=== PATIENT | female | born 1975 | race Caucasian/White ===

== ENCOUNTER 2017-12-27 11:52 | Observation (INO) ==
--- NOTE | 2017-12-27 12:32 | Emergency Department Note ---
Disposition Clinical Impression: Chest pain Qualifiers: Chest pain type: unspecified Qualified Code(s): R07.9 - Chest pain, unspecified Disposition: Admitted As Inpatient Condition: Fair Referrals: Aidan Bhat MD [Primary Care Provider] - Forms: ED Satisfaction Letter Time of Disposition: 14:15 Chest Pain HPI - General Chief Complaint: ED Chest Pain Stated Complaint: CP Time Seen by Provider: 12/27/17 12:05 Source: patient Mode of arrival: ambulatory Limitations: no limitations Vital Signs Reviewed: Yes Nursing Notes Reviewed: Yes - History of Present Illness HPI Narrative: 42-year-old female who comes in complaining of chest pain. Patient had chest pain off and on for the last month and a half actually had a stress test that apparently showed abnormality and saw cardiology today who sent her in to be admitted for cardiac catheter. Nuclear stress test shows a moderately large anterior anterior lateral mostly reversible defect consistent with ischemic heart disease. Pt complaint: chest pain Onset (ago): month(s) (1-08/30) Duration: intermittent Onset: during rest Pain Location: substernal, left chest Severity scale (1-10): 0 Quality: tightness, aching, heaviness Pain Radiation: none - Related Data Home Medications Medication Instructions Recorded Confirmed Albuterol Sulfate [Albuterol 2 puff IH Q4HR PRN 07/29/17 08/03/17 Inhaler] Citalopram Hydrobromide [Celexa] 40 mg PO DAILY 07/29/17 08/03/17 Esomeprazole Magnesium [Nexium] 40 mg PO DAILY 07/29/17 08/03/17 Fluticasone Propionate Nasal 2 spr NS DAILY PRN 07/29/17 08/03/17 [Flonase] Glimepiride [Amaryl] 2 mg PO 0800 07/29/17 08/03/17 Levothyroxine [Synthroid] 175 mcg PO 0630 07/29/17 08/03/17 Lisinopril [Zestril] 5 mg PO DAILY 07/29/17 08/03/17 [place] Carbonate 300 mg PO QAM 07/29/17 08/03/17 [place] Carbonate 600 mg PO HS 07/29/17 08/03/17 Metformin HCl [Glucophage] 1,000 mg PO BID 07/29/17 08/03/17 Ranitidine HCl [Zantac] 150 mg PO BID 07/29/17 08/03/17 Sucralfate [Carafate] 1 gm PO BID 07/29/17 08/03/17 Tolterodine LA (24 HR) [Detrol LA] 4 mg PO DAILY 07/29/17 08/03/17 Ziprasidone HCl [Geodon] 60 mg PO HS 07/29/17 08/03/17 clonazePAM [Klonopin] 1 mg PO TID 07/29/17 08/03/17 Previous Rx's Medication Instructions Recorded OxyCODONE/APAP 5/325 [Percocet 1 each PO Q6HR PRN #14 tablet 08/03/17 5/325 MG] Allergies Allergy/AdvReac Type Severity Reaction Status Date / Time bupropion [From Wellbutrin] AdvReac Shakiness Verified 12/27/17 11:55 All systems ED: reviewed and negative except as stated. Constitutional: Denies: fever, chills, weakness, weight change Eyes: Denies: eye pain, eye discharge, vision change ENT ED: Denies: ear pain, throat pain, dental pain, hearing loss, epistaxis, congestion, dysphagia Cardiovascular: Reports: chest pain. Denies: palpitations, dyspnea on exertion , edema, syncope Respiratory: Denies: cough, dyspnea, wheezes, hemoptysis, stridor Gastrointestinal: Denies: abdominal pain, nausea, vomiting, diarrhea, constipation, hematemesis, melena, hematochezia Genitourinary: Denies: dysuria, frequency, hematuria, discharge Musculoskeletal: Denies: back pain, neck pain, arthralgia, myalgia Integumentary: Denies: rash, abrasion, lesions Neurological: Denies: headache, weakness, numbness, paresthesias, confusion, abnormal gait, vertigo Psychiatric: Denies: anxiety, depression, suicidal thoughts, homicidal thoughts , auditory hallucinations, visual hallucinations Endocrine: Denies: fatigue Hematological/Lymphatic: Denies: easy bleeding, easy bruising Allergic/Immunologic: Denies: facial swelling, urticaria Chest Pain PMH - Past Medical History Medical history: Reports: asthma, diabetes, hyperlipidemia, hypertension Surgical history: Reports: no surgical history Psychiatric history: Reports: anxiety, bipolar, depression - Social History Smoking Status: Never smoker Alcohol use: Reports: rarely Drug use: Reports: none Physical Exam - General Limitations: no limitations General appearance: alert - Head Head exam: atraumatic, normocephalic, normal inspection - Eye Eye exam: Present: normal appearance, PERRL, EOMI - ENT ENT exam: normal exam, normal oropharynx, mucous membranes moist - Neck Neck exam: Present: normal inspection, full ROM, trachea midline - Chest Chest inspection: Present: normal inspection, symmetric chest wall rise - Respiratory Respiratory exam: Present: normal lung sounds bilaterally - Cardiovascular Cardiovascular exam: Present: regular rate, normal rhythm, normal heart sounds - Abdominal Exam Abdominal exam: Present: soft, Non-Tender. Absent: tenderness, distention, guarding, rebound, rigidity - Extremities Exam Extremities exam: Present: normal inspection, full ROM. Absent: tenderness, pedal edema - Expanded Lower Extremity Exam Neurovascular/Tendon exam: Absent: motor deficit, sensory deficit, tendon deficit Gait: observed and normal - Back Exam Back exam: Present: normal inspection, full ROM. Absent: tenderness - Neurological Exam Neurological exam: Present: alert, oriented X3 - Psychiatric Psychiatric exam: Present: normal affect, normal mood - Skin Skin exam: Present: warm Course - Reevaluation(s) Reevaluation #1: 42-year-old has abnormal stress test will be admitted for further evaluation. Time: 14:15 - Consultations Consultation #1: Discussed with Dr. Ray Time: 14:15 Vital Signs Temperature 98.7 F 12/27/17 11:55 Pulse Rate 91 12/27/17 11:55 Respiratory Rate 20 12/27/17 11:55 Blood Pressure 117/84 12/27/17 11:55 O2 Sat by Pulse Oximetry 96 12/27/17 11:55 Temperature 98.7 F 12/27/17 11:55 Pulse Rate 80 12/27/17 12:20 Respiratory Rate 16 12/27/17 12:20 Blood Pressure 116/82 12/27/17 12:20 O2 Sat by Pulse Oximetry 95 12/27/17 12:20 Oxygen Delivery Oxygen Delivery Room Air Chest Pain - Lab Data Lab results reviewed: Yes I reviewed the patient's lab results. Result diagrams: 12/27/17 12:42 12/27/17 12:42 Lab Results 12/27/17 12/27/17 12/27/17 Range/Units 12:42 12:42 12:42 WBC 8.1 (4.3-11.1) K/mcL RBC 5.15 H (3.82-4.97) M/mcL Hgb 13.8 (11.5-15.4) g/dL Hct 41.6 (35.3-44.9) % MCV 80.8 L (83.0-100.0) fL MCH 26.8 L (28.0-33.3) pg MCHC 33.2 (31.6-35.5) g/dL RDW 14.5 (11.5-14.5) % Plt Count 317 (140-400) K/mcL MPV 9.7 (9.4-12.4) fL Immature Gran % 0.2 (0-4) % Seg Neutrophils % 62.4 % Lymphocytes % 25.1 % Monocytes % 6.7 % Eosinophils % 4.9 % Basophils % 0.7 % Neutrophils # 5.0 (1.6-8.9) K/mcL Lymphocytes # 2.0 (0.6-4.6) K/mcL Monocytes # 0.5 (0.0-1.3) K/mcL Eosinophils # 0.4 (0.0-0.6) K/mcL Basophils # 0.1 (0.0-0.2) K/mcL PT 11.2 (9.4-12.1) Seconds INR 1.0 APTT 36.7 H (26.0-36.0) Seconds Sodium 141 (136-145) mEq/L Potassium 4.2 (3.5-5.1) mEq/L Chloride 110 H (98-107) mEq/L Carbon Dioxide 21 L (23-29) mEq/L BUN 7 (6-20) mg/dL Creatinine 0.73 (0.60-1.20) mg/dL Est GFR ( Amer) > 60 (> 60) Est GFR (Non-Af Amer) > 60 (> 60) BUN/Creatinine Ratio 10 (6-26) Glucose 95 (70-105) mg/dL Calculated Osmolality 290 (280-300) Calcium 9.5 (8.6-10.3) mg/dL Troponin I < 0.03 (< 0.04) ng/mL - Radiology Data Radiology results reviewed: Yes I reviewed the patient's radiology results. Chest X-Ray 12/27/17 12:06 IMPRESSION: No acute cardiopulmonary disease. D/ / 12/27/2017 13:22:37 Kemar Montero MD / sahara Interpreting Provider: Kemar Montero MD - EKG Data EKG attestation: Yes I reviewed and interpreted this EKG. EKG shows normal: sinus rhythm Rate: normal Rhythm: NSR [place]/QRS: normal Interpretation: no acute changes Heart Score - Score History: Highly Suspicious EKG: Normal Age: Less than 45 Risk Factors: Equal/Greater than 3 risk factor or history of atherosclerotic disease Troponin: Less than normal limit HEART Score Total: 4
[2017-12-27 12:52] LABS: Basophils # 0.1 K/mcL (0.0-0.2); Basophils % 0.7 %; Eosinophils # 0.4 K/mcL (0.0-0.6); Eosinophils % 4.9 %; Hematocrit 41.6 % (35.3-44.9); Hemoglobin 13.8 g/dL (11.5-15.4); Immature Granulocytes % 0.2 % (0-4); Lymphocytes % 25.1 %; Mean Corpuscular HGB Conc 33.2 g/dL (31.6-35.5); Mean Corpuscular Hemoglobin 26.8 pg (28.0-33.3); Mean Corpuscular Volume 80.8 fL (83.0-100.0); Mean Platelet Volume 9.7 fL (9.4-12.4); Monocytes # 0.5 K/mcL (0.0-1.3); Monocytes % 6.7 %; Platelet Count 317 K/mcL (140-400); Red Blood Count 5.15 M/mcL (3.82-4.97); Red Cell Distribution Width 14.5 % (11.5-14.5); Segmented Neutrophils % 62.4 %
[2017-12-27 12:59] LABS: Prothrombin Time 11.2 Seconds (9.4-12.1)
[2017-12-27 13:02] LABS: Activated Partial Thrombo Time 36.7 Seconds (26.0-36.0)
[2017-12-27 13:13] LABS: Troponin I < 0.03 ng/mL (< 0.04)
[2017-12-27 13:37] LABS: BUN/Creatinine Ratio 10 (6-26); Blood Urea Nitrogen 7 mg/dL (6-20); Calcium 9.5 mg/dL (8.6-10.3); Carbon Dioxide 21 mEq/L (23-29); Chloride 110 mEq/L (98-107); Glucose 95 mg/dL (70-105); Osmolality,Calculated 290 (280-300); Potassium 4.2 mEq/L (3.5-5.1); Sodium 141 mEq/L (136-145); eGFR For African Americans > 60 (> 60); eGFR For Non-African Americans > 60 (> 60)
[2017-12-27] MEDS ORDERED: Naloxone 0.4 MG/ML INJ IVP PRN (14:14)
[2017-12-27] MEDS ORDERED: Fluticasone Propionate Nasal 50 MCG/SPRAY BOTTLE NS PRN (14:15)
[2017-12-27] MEDS ORDERED: *HR* Dextrose 50 % in Water (Syg) 50 ML SYRINGE IVP PRN (14:17)
[2017-12-27] MEDS ORDERED: D5% in Water 1,000 ML IVC PRN (14:17)
[2017-12-27] MEDS ORDERED: Dextrose Gel 15 GM/37.5 ML TUBE PO PRN ×2 (14:17)
--- NOTE | 2017-12-27 14:21 | Internal Med History&Physical ---
Date of Encounter: 12/28/17 Time of Encounter: 14:20 Internal Medicine - H&P: HPI Chief complaint: abnormal stress test Admitted From: Emergency Dept Plans for Post Hospital Care: Home History of present illness: PCP: Dr Bhat Brief past medical history: Diabetes, hypertension, dyslipidemia, bronchial asthma, psychiatric disorder, History of present medical illness: Patient was complaining of ongoing chest pain for which she was investigated at length. Noted that patient has a recently stress test was done. Patient's stress test was suggestive of a large reversible defect. Patient today went to tile erector for evaluation and at that time it was noted that patient was complaining of occasional chest pain. Data Collection Specialist evaluated the patient and sent her to emergency room for further management. Patient denies shortness of breath, nausea, vomiting, dizziness and diarrhea. Workup in the emergency room: Patient was evaluated in the emergency room. Baseline labs were drawn. Cardiology recommends admission and cardiac catheterization Reason for admission: Abnormal stress test with intermittent chest pain Past Med Surg Social Fam HX - Past Medical History Medical history: asthma, diabetes, hyperlipidemia, hypertension Psychiatric history: anxiety, bipolar, depression - Past Surgical History Surgical History: no surgical history - Social History Smoking Status: Never smoker Smokeless Tobacco Status: No Alcohol use: rarely Drug use: none Internal Medicine - H&P: Meds Albuterol Sulfate [Albuterol Inhaler] 2 puff IH Q4HR PRN 07/29/17 [History] Citalopram Hydrobromide [Celexa] 40 mg PO DAILY 07/29/17 [History] Esomeprazole Magnesium [Nexium] 40 mg PO DAILY 07/29/17 [History] Fluticasone Propionate Nasal [Flonase] 2 spr NS DAILY PRN 07/29/17 [History] Glimepiride [Amaryl] 2 mg PO 0800 07/29/17 [History] Levothyroxine [Synthroid] 175 mcg PO 0630 07/29/17 [History] Lisinopril [Zestril] 5 mg PO DAILY 07/29/17 [History] [place] Carbonate 300 mg PO QAM 07/29/17 [History] [place] Carbonate 600 mg PO HS 07/29/17 [History] Metformin HCl [Glucophage] 1,000 mg PO BID 07/29/17 [History] Ranitidine HCl [Zantac] 150 mg PO BID 07/29/17 [History] Tolterodine LA (24 HR) [Detrol LA] 4 mg PO DAILY 07/29/17 [History] Ziprasidone HCl [Geodon] 60 mg PO HS 07/29/17 [History] clonazePAM [Klonopin] 1 mg PO TID 07/29/17 [History] OxyCODONE/APAP 5/325 [Percocet 5/325 MG] 1 each PO Q6HR PRN #14 tablet 08/03/17 [Rx] Aspirin [Adult Aspirin Regimen] 81 mg PO DAILY 12/27/17 [History] Atorvastatin Calcium [Lipitor] 20 mg PO HS 12/27/17 [History] Empagliflozin [Jardiance] 25 mg PO DAILY 12/27/17 [History] 3 Allergy/AdvReac Type Severity Reaction Status Date / Time bupropion [From Wellbutrin] AdvReac Shakiness Verified 12/27/17 14:20 All Systems PM: A 10-system review of systems was performed and is negative for pertinent findings except as documented above in the HPI. - Constitutional Constitutional: no chills, no fever(s), no night sweats - EENT Eyes: no change in vision, no discharge, no pain, no photophobia Ears: no ear discharge, no ear pain, no tinnitus Nose, mouth and throat: no dysphagia, no nasal discharge, no neck pain, no sore throat - Cardiovascular Cardiovascular ROS IM: chest pain, palpitations, no diaphoresis, no dyspnea, no lightheadedness, no syncope - Respiratory Respiratory: no cough, no dyspnea, no wheezing, no excessive phlegm production - Gastrointestinal Gastrointestinal: no abdominal pain, no diarrhea, no hematemesis, no hematochezia, no melena, no nausea, no vomiting - Genitourinary Genitourinary: no change in urinary stream, no dysuria, no flank pain, no hematuria - Musculoskeletal Musculoskeletal ROS IM: no numbness, no tingling - Integumentary Integumentary IM: no rash, no unusual bruising - Neurological Neurological ROS: no confusion, no convulsions, no focal weakness, no numbness, no tingling, no tremor(s) - Hematologic/Lymphatic Hematologic/Lymphatic: no easy bruising - Constitutional Vitals: Temp Pulse Resp BP Pulse Ox 98.7 F 80 16 116/82 95 12/27/17 11:55 12/27/17 12:20 12/27/17 12:20 12/27/17 12:20 12/27/17 12:20 General appearance: Present: A&O X 3, pleasant, no acute distress, answers questions appropriately - Head Head exam: Present: atraumatic, normocephalic - Eye Eye exam: Present: PERRL, conjuntiva pink, sclera anicteric Pupils: Present: PERRL - Neck Neck exam general surgery: Present: supple, trachea midline. Absent: lymphadenopathy - Respiratory Respiratory exam: Present: CTAB. Absent: accessory muscle use, rales, rhonchi, wheezes - Cardiovascular Cardiovascular exam: Present: RRR, +S1, +S2. Absent: diastolic murmur, gallop, rubs, systolic murmur - GI/Abdominal GI/Abdominal exam: Present: normal bowel sounds, soft, no peritoneal signs. Absent: distended, tenderness - Extremities Exam Extremities exam: Present: warm, radial pulses palpable and symmetrical. Absent : calf tenderness, cyanotic, pedal edema - Neurological Exam Neurological exam: Present: CN II-XII intact, oriented X3, no focal deficits. Absent: pronater drift, facial droop, speech deficit - Skin Skin exam: Present: dry, intact Internal Med - H&P Results - Labs CBC & Chem 7: 12/28/17 03:14 12/28/17 03:14 Labs: Short CBC 12/27/17 Range/Units 12:42 WBC 8.1 (4.3-11.1) K/mcL Hgb 13.8 (11.5-15.4) g/dL Hct 41.6 (35.3-44.9) % Plt Count 317 (140-400) K/mcL Neutrophils # 5.0 (1.6-8.9) K/mcL BMP 12/27/17 12:42 Sodium 141 Potassium 4.2 Chloride 110 H Carbon Dioxide 21 L BUN 7 Creatinine 0.73 Glucose 95 Calcium 9.5 Cardiac Enzymes 12/27/17 Range/Units 12:42 Troponin I < 0.03 (< 0.04) ng/mL - Impressions ITS Impressions Chest X-Ray 12/27/17 12:06 IMPRESSION: No acute cardiopulmonary disease. D/ / 12/27/2017 13:22:37 Kemar Montero MD / sahara Interpreting Provider: Kemar Montero MD - Assessment and plan (1) Chest pain Current Visit: Yes Status: Acute Assessment and plan: 42/F Came with abnormal stress test/chest pain At this point: Patient is chest pain-free. Patient is a abnormal stress test. Plan: Admit as observation. Diabetic diet. Cycle troponin. Aspirin/beta millie/ACEI/Lipitor/M.D./sublingual nitroglycerin. Patient is scheduled for cardiac catheterization tomorrow I have personally spoken to cardiology to Dr. Cullen I examined this patient in her room #33 in the emergency department. Plan of care explained to the patient. Patient verbalized understanding. Qualifiers: Chest pain type: precordial pain Qualified Code(s): R07.2 - Precordial pain (2) Diabetes mellitus Current Visit: Yes Status: Acute Assessment and plan: Patient is known to have a diabetes mellitus. We will follow the recommendations from subcutaneous insulin order set. We will keep patient nothing by mouth from midnight. Qualifiers: Diabetes mellitus type: type 2 Diabetes mellitus oysterman insulin use: unspecified oysterman insulin use status Diabetes mellitus complication status : with unspecified complications Qualified Code(s): E11.8 - Type 2 diabetes mellitus with unspecified complications (3) Hypertension Current Visit: Yes Status: Acute Assessment and plan: Patient is known to have a high blood pressure. At this point patient's blood pressure is very well controlled. We will continue the same medications. Qualifiers: Hypertension type: essential hypertension Qualified Code(s): I10 - Essential (primary) hypertension (4) Psychiatric disorder Current Visit: Yes Status: Acute Assessment and plan: Patient is a multiple psychiatric disorder. Patient is on appropriate medication for the same. We will continue/resume the home medication. (5) DVT prophylaxis Current Visit: Yes Status: Acute Assessment and plan: Heparin Medical decision making: This patient has a moderate to severe risk of worsening in spite of being on appropriate medication due to the underlying complex medical condition. - Time Spent With Patient Total time spent is greater than 50% in coordination of care (as documented) at patient's floor/unit and/or counseling patient:
[2017-12-27] MEDS ORDERED: Nitroglycerin 0.4 MG TAB.SUBL SL PRN (14:22)
[2017-12-27] MEDS ORDERED: Acetaminophen 325 MG TABLET PO ONE (15:37)
[2017-12-27] MEDS: Insulin LISPRO 300 UNITS/3 ML VIAL SQ SCH (17:38)
[2017-12-27] MEDS: clonazePAM 1 MG TABLET PO SCH ×2 (17:41→21:39)
[2017-12-27] MEDS: Isosorbide MONOnitrate (24 HR) 30 MG TAB.ER.24H PO SCH (17:41)
[2017-12-27] MEDS: *HR* OxyCODONE/APAP 5/325 TABLET PO PRN (20:12)
[2017-12-27] MEDS ORDERED: Famotidine 20 MG TABLET PO SCH (21:00)
[2017-12-27] MEDS: Lithium Carbonate 300 MG CAPSULE PO SCH (21:38)
[2017-12-27] MEDS: Ziprasidone 20 MG CAPSULE PO SCH (21:39)
[2017-12-27] MEDS: *HR* Heparin 5,000 UNIT/ML VIAL SQ SCH (21:40)
[2017-12-27] MEDS ORDERED: Prochlorperazine 10 MG/2 ML VIAL IVP PRN (22:57)
[2017-12-27] MEDS ORDERED: Ibuprofen 400 MG TABLET PO ONE (23:03)
[2017-12-28 03:41] LABS: Basophils # 0.1 K/mcL (0.0-0.2); Basophils % 0.9 %; Eosinophils # 0.4 K/mcL (0.0-0.6); Eosinophils % 4.7 %; Hematocrit 39.4 % (35.3-44.9); Hemoglobin 12.9 g/dL (11.5-15.4); Immature Granulocytes % 0.3 % (0-4); Lymphocytes # 2.8 K/mcL (0.6-4.6); Lymphocytes % 36.7 %; Mean Corpuscular HGB Conc 32.7 g/dL (31.6-35.5); Mean Corpuscular Hemoglobin 26.5 pg (28.0-33.3); Mean Corpuscular Volume 81.1 fL (83.0-100.0); Mean Platelet Volume 9.8 fL (9.4-12.4); Monocytes # 0.6 K/mcL (0.0-1.3); Monocytes % 7.5 %; Neutrophils # 3.9 K/mcL (1.6-8.9); Platelet Count 301 K/mcL (140-400); Red Blood Count 4.86 M/mcL (3.82-4.97); Red Cell Distribution Width 14.5 % (11.5-14.5); Segmented Neutrophils % 49.9 %
[2017-12-28 03:57] LABS: Alanine Aminotransferase 14 Units/L (7-52); Albumin 3.5 g/dL (3.5-5.7); Albumin/Globulin Ratio 1.5 (1.1-2.2); Alkaline Phosphatase 52 Units/L (34-104); Aspartate Amino Transferase 11 Units/L (13-39); BUN/Creatinine Ratio 11 (6-26); Bilirubin,Total 0.5 mg/dL (0.3-1.0); Blood Urea Nitrogen 8 mg/dL (6-20); Carbon Dioxide 27 mEq/L (23-29); Chloride 110 mEq/L (98-107); Chol/HDL Ratio 3.3 (0-4.9); Cholesterol 116 mg/dL (< 200); Globulin 2.4 g/dL (2.4-3.5); Glucose 87 mg/dL (70-105); HDL Cholesterol 35 mg/dL (40-59); LDL Cholesterol,Calculated 38 mg/dL (0-99); Magnesium 2.1 mg/dL (1.6-2.6); Osmolality,Calculated 290 (280-300); Phosphorous 4.3 mg/dL (2.7-4.5); Potassium 3.8 mEq/L (3.5-5.1); Sodium 141 mEq/L (136-145); Total Protein 5.9 g/dL (6.4-8.9); Triglycerides 215 mg/dL (< 150); eGFR For African Americans > 60 (> 60); eGFR For Non-African Americans > 60 (> 60)
[2017-12-28] MEDS: *HR* Heparin 5,000 UNIT/ML VIAL SQ SCH ×3 (06:31→21:22)
[2017-12-28] MEDS: Insulin LISPRO 300 UNITS/3 ML VIAL SQ SCH ×3 (07:22→17:07)
[2017-12-28] MEDS: *HR* Glimepiride 2 MG TABLET PO SCH (08:00)
[2017-12-28] MEDS: Aspirin Enteric Coated 81 MG Tablet PO SCH (08:01)
[2017-12-28] MEDS: Isosorbide MONOnitrate (24 HR) 30 MG TAB.ER.24H PO SCH (08:03)
[2017-12-28] MEDS: clonazePAM 1 MG TABLET PO SCH ×3 (08:03→21:13)
[2017-12-28] MEDS: Lithium Carbonate 300 MG CAPSULE PO SCH ×2 (08:03→21:13)
[2017-12-28] MEDS: (Empagliflozin [Jardiance] 25 MG) PO SCH (08:04)
[2017-12-28] MEDS: Tolterodine LA (24 HR) 4 MG CAP.ER.24H PO SCH (08:09)
--- NOTE | 2017-12-28 11:11 | Cardiology Consult Note ---
Date of Encounter: 12/28/17 Time of Encounter: 11:09 Assessment and Plan (1) Abnormal stress test Current Visit: Yes Status: Acute Nuclear stress test 12/22/17 that revealed large sized, moderate intensity mostly reversible anterior and anterolateral defect possibly due to ischemia. TTE 12/23 EF preserved, no significant findings. Risk factors for CAD include HTN, HLD, DMII, obesity, family hx. Chest pain as HPI. Recommend [facility] to further evaluate. R/B/A discussed. Pt agrees to proceed. LHC today. (2) Chest pain Current Visit: Yes Status: Acute Chest pain concerning for unstable angina with abnormal stress test as above, multiple risk factors. Troponin negative x 3. LHC today. R/B/A discussed. Qualifiers: Chest pain type: precordial pain Qualified Code(s): R07.2 - Precordial pain Discussion w patient/family: The assessment and plan as outlined above was discussed with the patient and/or family members who expressed understanding and agreement. All questions were answered. Thank you for involving us in the care of your patient. Please call with any questions. I will discuss all the above with Dr. Yu and make changes as necessary. History of Present Illness Consult date: 12/28/17 Requesting physician: Tari Carlson Consult reason: Abnormal stress test, unstable angina Chief complaint: chest pain History of present illness: Ms. 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 Pt reports she started having intermittent chest pain for over the past month. Pain is described as midsternal, achy and pressure that radiated once to her left neck, no exacerbating or alleviating factors, lasts seconds to minutes. Pt saw PCP, stress test ordered and completed 12/22/17 that revealed large sized, moderate intensity mostly reversible anterior and anterolateral defect possibly due to ischemia. TTE 12/23 EF preserved, no significant findings. Troponin negative x 3. Cardiology consulted for further recs. Pt reports having LHC 5 years ago at [facility] without intervention. Past Med Surg Social Fam HX - Past Medical History Medical history: asthma, diabetes, hyperlipidemia, hypertension Psychiatric history: anxiety, bipolar, depression - Past Surgical History Surgical History: no surgical history - Social History Smoking Status: Never smoker Smokeless Tobacco Status: No Alcohol use: rarely Drug use: none - Family History Father Age: 61 Living Status: Still Living Hx Family Cardiac Disorders: Yes (CABG) Hx Family Respiratory Disorders: Yes (COPD) Mother Age: 63 Living Status: Still Living Hx Family Cardiac Disorders: Yes (HTN) Hx Family Respiratory Disorders: Yes (unknown) Hx Family Endocrine Disorder: Yes (DM) Medications and Allergies Albuterol Sulfate [Albuterol Inhaler] 2 puff IH Q4HR PRN 07/29/17 [History] Citalopram Hydrobromide [Celexa] 40 mg PO DAILY 07/29/17 [History] Esomeprazole Magnesium [Nexium] 40 mg PO DAILY 07/29/17 [History] Fluticasone Propionate Nasal [Flonase] 2 spr NS DAILY PRN 07/29/17 [History] Glimepiride [Amaryl] 2 mg PO 0800 07/29/17 [History] Levothyroxine [Synthroid] 175 mcg PO 0630 07/29/17 [History] Lisinopril [Zestril] 5 mg PO DAILY 07/29/17 [History] Dinwiddie Carbonate 300 mg PO QAM 07/29/17 [History] Dinwiddie Carbonate 600 mg PO HS 07/29/17 [History] Metformin HCl [Glucophage] 1,000 mg PO BID 07/29/17 [History] Ranitidine HCl [Zantac] 150 mg PO BID 07/29/17 [History] Tolterodine LA (24 HR) [Detrol LA] 4 mg PO DAILY 07/29/17 [History] Ziprasidone HCl [Geodon] 60 mg PO HS 07/29/17 [History] clonazePAM [Klonopin] 1 mg PO TID 07/29/17 [History] OxyCODONE/APAP 5/325 [Percocet 5/325 MG] 1 each PO Q6HR PRN #14 tablet 08/03/17 [Rx] Aspirin [Adult Aspirin Regimen] 81 mg PO DAILY 12/27/17 [History] Atorvastatin Calcium [Lipitor] 20 mg PO HS 12/27/17 [History] Empagliflozin [Jardiance] 25 mg PO DAILY 12/27/17 [History] 3 Allergy/AdvReac Type Severity Reaction Status Date / Time bupropion [From Wellbutrin] AdvReac Shakiness Verified 12/27/17 14:20 All Systems Review: The remainder of the systems were reviewed and are negative - Cardiovascular Cardiovascular: as per HPI, chest pain at rest, chest pain with exertion, radiating jaw, neck or arm pain Physical Examination Vital Signs Temp Pulse Resp BP Pulse Ox 12/28/17 06:49 99.0 F 82 17 113/79 92 12/28/17 03:44 98.3 F 67 16 105/65 94 12/28/17 00:38 98.5 F 78 16 96/51 94 12/27/17 19:38 98.2 F 80 16 111/77 95 12/27/17 17:19 99.4 F 78 16 127/82 95 12/27/17 16:24 98.2 F 18 118/82 12/27/17 12:20 80 16 116/82 95 12/27/17 11:55 98.7 F 91 20 117/84 96 Intake and Output 12/27/17 12/28/17 12/28/17 23:59 07:59 15:59 Other: # Voids 3 Weight 154.9 kg Blood Glucose* 129 97 Patient Weight 12/28/17 23:59 Weight 154.9 kg General: Conversant, No Apparent Distress HEENT: Atraumatic, Normocephaly, Mucus Membranes Moist Neck: No JVD, Normal carotid pulses Cardiac: Reg Rate and Rhythm, Normal S1 and S2, No Murmur Lungs: Normal Breath Sounds, No Wheeze, Rales, Rhonchi Neuro: Alert and responsive, No focal deficits noted Abdomen: Soft, Non-Tender Skin: No rashes noted on visualized skin Musculoskeletal: No Chest Wall Tenderness Extremities: No Clubbing, No Cyanosis, No Edema, Normal Pulses Results 12/28/17 03:14 12/28/17 03:14 Lab Results 12/27/17 12/28/17 12/28/17 20:10 03:14 03:14 WBC 7.7 Hgb 12.9 Hct 39.4 Plt Count 301 Sodium Potassium Chloride Carbon Dioxide BUN Creatinine Glucose Calcium Magnesium Total Bilirubin AST ALT Alkaline Phosphatase Troponin I < 0.03 < 0.03 B-Natriuretic Peptide 12/28/17 12/28/17 03:14 03:14 WBC Hgb Hct Plt Count Sodium 141 Potassium 3.8 Chloride 110 H Carbon Dioxide 27 BUN 8 Creatinine 0.73 Glucose 87 Calcium 9.0 Magnesium 2.1 Total Bilirubin 0.5 AST 11 L ALT 14 Alkaline Phosphatase 52 Troponin I B-Natriuretic Peptide 11 Short CBC 12/28/17 12/27/17 Range/Units 03:14 12:42 WBC 7.7 8.1 (4.3-11.1) K/mcL Hgb 12.9 13.8 (11.5-15.4) g/dL Hct 39.4 41.6 (35.3-44.9) % Plt Count 301 317 (140-400) K/mcL Neutrophils # 3.9 5.0 (1.6-8.9) K/mcL BMP 12/28/17 12/27/17 Range/Units 03:14 12:42 Sodium 141 141 (136-145) mEq/L Potassium 3.8 4.2 (3.5-5.1) mEq/L Chloride 110 H 110 H (98-107) mEq/L Carbon Dioxide 27 21 L (23-29) mEq/L BUN 8 7 (6-20) mg/dL Creatinine 0.73 0.73 (0.60-1.20) mg/dL Glucose 87 95 (70-105) mg/dL Calcium 9.0 9.5 (8.6-10.3) mg/dL Cardiac Enzymes 12/28/17 12/27/17 12/27/17 Range/Units 03:14 20:10 14:38 Troponin I < 0.03 < 0.03 < 0.03 (< 0.04) ng/mL 12/27/17 Range/Units 12:42 Troponin I < 0.03 (< 0.04) ng/mL Liver Function 12/28/17 Range/Units 03:14 Total Bilirubin 0.5 (0.3-1.0) mg/dL AST 11 L (13-39) Units/L ALT 14 (7-52) Units/L Alkaline Phosphatase 52 (34-104) Units/L Albumin 3.5 (3.5-5.7) g/dL Impressions Chest X-Ray 12/27/17 12:06 IMPRESSION: No acute cardiopulmonary disease. D/ / 12/27/2017 13:22:37 Kemar Montero MD / earnick Interpreting Provider: Kemar Montero MD Active Medications Aspirin (Aspirin Ec) 81 mg PO DAILY [facility]ILDA Stop: 06/29/18 09:01 Last Admin: 12/28/17 08:01 Dose: 81 mg Atorvastatin Calcium (Lipitor) 20 mg PO HS WILDA Stop: 06/28/18 21:01 Last Admin: 12/27/17 21:39 Dose: 20 mg Citalopram Hydrobromide (Celexa) 40 mg PO QPM [facility]ILDA Stop: 06/28/18 20:19 Last Admin: 12/27/17 21:46 Dose: 40 mg Clonazepam (Klonopin) 1 mg PO TID [facility]IL[facility] Stop: 06/28/18 15:01 Last Admin: 12/28/17 08:03 Dose: 1 mg Dextrose/Water (Dextrose 50% (Syg)) 25 ml IVP AD PRN PRN Reason: Hypoglycemia Stop: 06/28/18 14:18 Fluticasone Propionate (Flonase) 100 mcg NS DAILY PRN; Protocol PRN Reason: Allergy Symptoms Stop: 06/28/18 14:16 Glimepiride (Amaryl) 2 mg PO 0800 [facility] Stop: 06/29/18 08:01 Last Admin: 12/28/17 08:00 Dose: Not Given Glucagon (Glucagen) 1 mg IM ONCE PRN PRN Reason: Hypoglycemia Stop: 06/28/18 14:18 Glucose (Gluctose) 15 gm PO ONCE PRN PRN Reason: Hypoglycemia Stop: 06/28/18 14:18 Glucose (Gluctose) 30 gm PO ONCE PRN PRN Reason: Hypoglycemia Stop: 06/28/18 14:18 Heparin Sodium (Porcine) (Heparin) 5,000 unit SQ Q8HCO [facility]ILDA Stop: 06/28/18 22:01 Last Admin: 12/28/17 06:31 Dose: 5,000 unit Dextrose (Dextrose 5%) 1,000 mls @ 100 mls/hr IVC .Q10H PRN PRN Reason: HYPOGLYCEMIA Stop: 06/28/18 14:18 Insulin Human Lispro (Humalog) 0 units SQ TIDAC WILDA PRN Reason: Protocol Stop: 06/28/18 16:31 Last Admin: 12/28/17 07:22 Dose: Not Given Isosorbide Mononitrate (Imdur) 30 mg PO DAILY [facility] Stop: 06/28/18 14:31 Last Admin: 12/28/17 08:03 Dose: 30 mg Levothyroxine Sodium (Synthroid) 175 mcg PO 0630 [facility] Stop: 06/29/18 06:31 Last Admin: 12/28/17 06:31 Dose: 175 mcg Lisinopril (Zestril) 5 mg PO DAILY [facility] PRN Reason: Protocol Stop: 06/29/18 09:01 Last Admin: 12/28/17 08:04 Dose: 5 mg Dinwiddie Carbonate (Dinwiddie Carbonate) 600 mg PO HS [facility] Stop: 06/28/18 21:01 Last Admin: 12/27/17 21:38 Dose: 600 mg Dinwiddie Carbonate (Dinwiddie Carbonate) 300 mg PO QAM [facility] PRN Reason: Protocol Stop: 06/29/18 09:01 Last Admin: 12/28/17 08:03 Dose: 300 mg Naloxone HCl (Narcan) 0.4 mg IVP Q2MIN PRN PRN Reason: SEE COMMENTS Stop: 06/28/18 14:15 Nitroglycerin (Nitroglycerin) 0.4 mg SL Q5MIN PRN PRN Reason: Chest Pain Stop: 06/28/18 14:23 Omeprazole (Prilosec) 40 mg PO DAILY [facility] Stop: 06/29/18 09:01 Last Admin: 12/28/17 08:04 Dose: 40 mg Oxycodone/Acetaminophen (Percocet 5/325) 1 each PO Q6HR PRN PRN Reason: Pain Stop: 06/28/18 14:16 Last Admin: 12/27/17 20:12 Dose: 1 each Pharmacy Profile Note (Patient Taking Own Medication) 0 each PO DAILY [facility] Stop: 06/29/18 09:01 Last Admin: 12/28/17 08:04 Dose: Not Given Prochlorperazine Edisylate (Compazine) 10 mg IVP ONCE PRN PRN Reason: Nausea And Vomiting Stop: 06/28/18 22:58 Last Admin: 12/27/17 23:32 Dose: 10 mg Sucralfate (Carafate) 1 gm PO BID [facility] Stop: 06/28/18 21:01 Last Admin: 12/28/17 08:01 Dose: Not Given Tolterodine Tartrate (Detrol La) 4 mg PO DAILY [facility] Stop: 06/29/18 09:01 Last Admin: 12/28/17 08:09 Dose: 4 mg Ziprasidone (Geodon) 60 mg PO HS [facility] Stop: 06/28/18 21:01 Last Admin: 12/27/17 21:39 Dose: 60 mg - Imaging and Cardiology Echo: report reviewed Cardiac cath: report reviewed - EKG Interpretation EKG results cardiology: personally reviewed Consult Discharge Plan - Plan Referrals: Aidan Bhat MD [Primary Care Provider] -
[2017-12-28] MEDS ORDERED: Ibuprofen 400 MG TABLET PO ONE (11:30)
--- NOTE | 2017-12-28 12:22 | Electrocardiograph Report ---
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
--- NOTE | 2017-12-28 14:32 | Internal Med Progress Note ---
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 Currently chest pain-free. Evaluated by cardiology who is planning LHC. Cont Aspirin, BB, Lipitor. Further recommendations pending left heart catheterization. Qualifiers: Chest pain type: precordial pain Qualified Code(s): R07.2 - Precordial pain (2) Diabetes mellitus Current Visit: Yes Status: Acute Assessment and plan: per hx. Control unknown. Holding home oral hypoglycemics. SSI. Blood sugars controlled. Monitor blood sugars and titrate PRN. 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 BP controlled. Cont home BP medication. Monitor BP and titrate PRN Qualifiers: Hypertension type: essential hypertension Qualified Code(s): I10 - Essential (primary) hypertension (4) Psychiatric disorder Current Visit: Yes Status: Acute Assessment and plan: hx multiple psychiatric disorder. Cont home medication regimen. (5) DVT prophylaxis Current Visit: Yes Status: Acute Assessment and plan: Heparin - Time Spent With Patient Total time spent is greater than 50% in coordination of care (as documented) at patient's floor/unit and/or counseling patient: - Subjective Interval history: Seen and examined at bedside. Patient is new to me, information obtained from chart review and patient report. She is anxious to have left heart catheterization but otherwise feels improved. Says she has intermittent chest pain, none on my exam. No shortness of breath. - Constitutional Vitals: Temp Pulse Resp BP Pulse Ox 98.5 F 75 16 128/72 95 12/28/17 11:41 12/28/17 11:41 12/28/17 11:41 12/28/17 11:41 12/28/17 11:41 General appearance: Present: A&O X 3, morbidly obese, pleasant, no acute distress, answers questions appropriately - Head Head exam: Present: atraumatic, normocephalic - Eye Eye exam: Present: PERRL, conjuntiva pink, sclera anicteric Pupils: Present: PERRL - Neck Neck exam general surgery: Present: supple, trachea midline. Absent: lymphadenopathy - Respiratory Respiratory exam: Present: CTAB. Absent: accessory muscle use, rales, rhonchi, wheezes - Cardiovascular Cardiovascular exam: Present: RRR, +S1, +S2. Absent: diastolic murmur, gallop, rubs, systolic murmur - GI/Abdominal GI/Abdominal exam: Present: normal bowel sounds, soft, no peritoneal signs. Absent: distended, tenderness - Extremities Exam Extremities exam: Present: warm, radial pulses palpable and symmetrical. Absent : calf tenderness, cyanotic, pedal edema - Neurological Exam Neurological exam: Present: CN II-XII intact, oriented X3, no focal deficits. Absent: pronater drift, facial droop, speech deficit - Skin Skin exam: Present: dry, intact Internal Medicine: Result - Labs CBC & Chem 7: 12/28/17 03:14 12/28/17 03:14 Labs: Short CBC 12/28/17 Range/Units 03:14 WBC 7.7 (4.3-11.1) K/mcL Hgb 12.9 (11.5-15.4) g/dL Hct 39.4 (35.3-44.9) % Plt Count 301 (140-400) K/mcL Neutrophils # 3.9 (1.6-8.9) K/mcL BMP 12/28/17 03:14 Sodium 141 Potassium 3.8 Chloride 110 H Carbon Dioxide 27 BUN 8 Creatinine 0.73 Glucose 87 Calcium 9.0 Cardiac Enzymes 12/27/17 12/28/17 Range/Units 20:10 03:14 Troponin I < 0.03 < 0.03 (< 0.04) ng/mL Liver Function 12/28/17 Range/Units 03:14 Total Bilirubin 0.5 (0.3-1.0) mg/dL AST 11 L (13-39) Units/L ALT 14 (7-52) Units/L Alkaline Phosphatase 52 (34-104) Units/L Albumin 3.5 (3.5-5.7) g/dL - ABG Interpretation ABG results: PT/INR, D-dimer PT 11.2 Seconds (9.4-12.1) 12/27/17 12:42 Consult Discharge Plan - Plan Referrals: Aidan Bhat MD [Primary Care Provider] -
[2017-12-28] MEDS: *HR* OxyCODONE/APAP 5/325 TABLET PO PRN ×2 (14:52→21:13)
[2017-12-28] MEDS ORDERED: *HR* FentaNYL (PF) 100 MCG/2 ML VIAL ONE (15:58)
[2017-12-28] MEDS ORDERED: *HR* Midazolam HCl 2 MG/2 ML VIAL ONE ×2 (15:58→16:17)
[2017-12-28] MEDS ORDERED: 0.9 % Sodium Chloride 1,000 ML ONE ×2 (16:00→16:06)
--- NOTE | 2017-12-28 16:03 | Pre-Sedation Evaluation ---
Pre-sedation evaluation - Pre-sedation checklist Date of procedure: 12/28/17 Procedure: left heart cath Recent Vitals: Last Vital Signs Temp 97.9 F 12/28/17 15:02 Pulse 79 12/28/17 15:02 Resp 15 12/28/17 15:02 BP 105/66 12/28/17 15:02 Pulse Ox 95 12/28/17 15:02 H&P (including ROS) documented in medical record: Yes Previous reaction to sedatives/anesthetics: No Dietary Status: NPO after Midnight ASA Classification *see protocol: CLASS II-Mild systemic disease Plan of Care: Pt appropriate candidate for procedure/moderate/conscious sedation , Risks/benefits of procedure/sedation discussed w/ patient/family
[2017-12-28] MEDS ORDERED: Verapamil 5 MG/2 ML VIAL ONE (16:05)
[2017-12-28] MEDS ORDERED: Heparin 1,000 UNITS/500 mL 500 ML ONE (16:06)
[2017-12-28] MEDS ORDERED: ISOVUE-370 200 ML INFUS..BTL IV ONE (16:06)
[2017-12-28] MEDS ORDERED: *HR* Heparin 10,000 UNIT/10 ML VIAL ONE (16:06)
[2017-12-28] MEDS ORDERED: Nitroglycerin 1,000 MCG/10 ML VIAL IV ONE (16:06)
--- NOTE | 2017-12-28 16:56 | Invasive Diagnostic Lab Proc ---
Name: Elvira Thacker Date of Study: 12/28/2017 Date: 1975 Ht: 61.0in Medical Record#: [id number] Age: 42 Wt: 341.72lb Gender: Female BSA: 2.37 Order #: [id number] BMI: 64.52 Physicians Procedure Physician: Patric Whitehead MD, [facility] Referring MD: Referring MD: Staff Name Position Time In Ekaterina Ascencio RT (R) Scrub 03:43 PM Donato Talon RT (R) Monitor 03:43 PM Dot Bauer RN Electroformer 03:43 PM Indications Indication Abnormal Test - Stress Procedures Performed Procedure L HRT ARTERY/VENTRICLE ANGIO Pre-Procedure Checklist Informed consent is complete signed and on chart. H&P is on chart. ID band is on and ID verified with patient. Patient NPO for procedure The procedure was described for the patient and questions were answered. Blood Pressure: 132/78 ECG is on chart. Rhythm: NSR Plan of Care Patient will tolerate the procedure without complications. Adequate level of comfort will be maintained. Hemodynamics will remain stable Patient will recover from procedure without complications. Respiratory function will be maintained. Cardiac rhythm will remain stable. Patient temperature will be maintained. Patient and/or family have verbalized understanding of the procedure. Patient Education Chief Complaint/Reason for Test: Cardiac Cath Developmental Category: Adult (18-64 years) Developmentally Appropriate for Age: Yes Learning Barriers: None Education Needs: Procedure Education Method: Verbal Information Taught: Cardiac Cath Educational Evaluation: Able to repeat information Intravenous Access Time IV Size Location DC'd Fluid/Drip Rate Units RN 03:51 PM 20g 1 /" Patent On Arrival Lt Arm 0.9NaCl 25 ml/hr Dot Bauer RN Allergies acetaminophen bupropion Vital Signs Time BP (mmHg) HR (bpm) O2 Sat. RR (bpm) LOC 03:56 PM 132 / 78 68 96 % 15 5 = Fully awake and oriented or at pre-proc level 03:52 PM / % 4 = Oriented but drowsy 04:07 PM / % 4 = Oriented but drowsy 04:22 PM / % 5 = Fully awake and oriented or at pre-proc level 03:57 PM 132 / 78 66 97 % 7 04:02 PM 119 / 80 66 97 % 14 04:07 PM 113 / 69 65 99 % 11 04:12 PM 118 / 74 64 94 % 11 04:17 PM 122 / 74 63 97 % 13 04:22 PM 128 / 74 68 96 % 17 04:27 PM 123 / 77 65 95 % 11 04:33 PM 125 / 78 65 99 % 11 04:37 PM 134 / 76 74 97 % 12 04:42 PM 127 / 84 62 98 % 15 Procedural Medications Time Medication Dose Units Method Given By 03:58 PM Oxygen 2 L/min nasal cannula Dot Bauer RN 04:03 PM Versed 2 mg Intravenous Juancarlos, Dot HOLLY 04:03 PM Fentanyl 50 mcg Intravenous [place] j[place] RN 04:17 PM Versed 2 mg Intravenous JuancarlosDot RN 04:17 PM Fentanyl 25 mcg Intravenous Juancarlos, Dot HOLLY 04:17 PM Lidocaine 2% 18 ml Subcutaneous Patric Whitehead MD, [facility] ASA Classification: CLASS III- Severe systemic disease (i.e. prior AMI, diabetes with vascular complications, morbid obesity) Aliya Score Preprocedure Postprocedure Activity 2- Moves 4 extremities sustained head lift Activity 2- Moves 4 extremities sustained head lift Circulation 2- SBP +/= 20 points of pre-anesthetic level Circulation 2- SBP +/= 20 points of pre-anesthetic level Consciousness 2- Awake and alert oriented x 3 Consciousness 2- Awake and alert oriented x 3 O2 Saturation 2- Able to maintain O2 satruation of 92% on room air O2 Saturation 2- Able to maintain O2 satruation of 92% on room air Respiratory 2- Able to deep breathe and cough well Respiratory 2- Able to deep breathe and cough well Total Score 10 Total Score 10 Contrast Agent: Isovue Diagnostic Contrast: 85 ml Total Contrast: 85 ml Fluoro Dose: 494 mGy Procedure Log Time Note Enter By 03:43 PM Ekaterina Ascencio RT (R) Position: Scrub Time in: 15:43 03:43 PM Talon Sewell RT (R) Position: Monitor Time in: 15:43 03:43 PM Dot Bauer RN Position: Electroformer Time in: 15:43 03:43 PM Patient charges- Angio tray pack, Navilyst 3mm J, Pulse Oximetry and ACIST tubing and transducer [email or web address] 03:51 PM 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 03:52 PM CathStat 03:52 PM Procedure start 15:52 bw 03:52 PM ASA Class CLASS III- Severe systemic disease (i.e. prior AMI, diabetes with vascular complications, morbid obesity) bw 03:52 PM Time: 15:52 Patient comfortable and pain free: Yes 03:52 PM Time: 15:52LOC: 5 = Fully awake and oriented or at pre-proc level [email or web address] 03:56 PM Vitals capture started with the following parameters, Patient=Adult, Interval=5 min, Initial Prsfqfav=479 mmHg, Deflation Rate=3 mmHg, Cuff placed on Right Arm 03:57 PM HR=66 bpm, NTHK=851/78 mmhg, SpO2=97.0 %, Resp=7 B/min 03:57 PM Recorded ECG: HR=68 Condition=Condition 1 03:58 PM Hair removed from procedure site in procedure lab using clippers. Bilateral groin prepped with Chloraprep by Dulce Maria Mejia, then patient was draped. Skin intact. 03:58 PM Time: 15:58 Oxygen on at 2 L/min per nasal cannula by Dot Bauer RN 04:02 PM HR=66 bpm, VZDA=975/80 mmhg, SpO2=97.0 %, Resp=14 B/min 04:03 PM Clinical Presentation: Stable angina 04:03 PM Time: 16:03 Versed 2 mg Intravenous Given by Dot Bauer RN [email or web address] [id number] 04:03 PM Time: 16:03 Fentanyl 50 mcg Intravenous [facility] 04:07 PM Pressure channel 1 zero failed. 04:07 PM Pressure channel 1 zeroed. 04:07 PM HR=65 bpm, ODQX=180/69 mmhg, SpO2=99.0 %, Resp=11 B/min 04:07 PM Time: 15:52 Patient comfortable and pain free: Yes 04:07 PM Time: 15:52LOC: 4 = Oriented but drowsy ilson 04:12 PM HR=64 bpm, SXQE=484/74 mmhg, SpO2=94.0 %, Resp=11 B/min 04:16 PM Time out performed according to hospital policy 04:17 PM Time: 16:17 Versed 2 mg Intravenous Given by Dot Bauer RN 04:17 PM Time: 16:17 Fentanyl 25 mcg Intravenous Given by Dot Bauer RN 04:17 PM HR=63 bpm, MYZJ=690/74 mmhg, SpO2=97.0 %, Resp=13 B/min 04:18 PM Time: 16:17 18 ml Lidocaine 2% to right groin Subcutaneous Given by Patric Whitehead MD, [facility] 04:19 PM Unsuccessful access attempt # 1 into the right Femoral artery. Manual pressure applied to achieve hemostasis.. 04:21 PM Access obtained by percutaneous puncture. 5Fr 10cm [place] [place] sheath placed in right Femoral artery. [id number] 04:21 PM 0.035 145cm Navilyst 3mmJ wire [id number] 04:21 PM 5Fr FL 4 catheter inserted over the wire [facility] : PM Recorded Pressure: Ao, HR=69, Condition=Condition 1 (Aorta) Ao 103/80/90 04:22 PM HR=68 bpm, TAYI=341/74 mmhg, SpO2=96.0 %, Resp=17 B/min 04: PM Time: 16:07LOC: 4 = Oriented but drowsy bw: PM Time: 16:07 Patient comfortable and pain free: Yes :22 PM LCA angiography performed in multiple views. bw 04:24 PM Catheter removed bw:24 PM 5Fr FR 4 catheter inserted over the wire [facility] :24 PM Lesion found in Mid LAD. Pre Stenosis: 15 Pre NICOLÁS Flow: bw2 :24 PM Mid/Distal Left Anterior Descending Coronary Artery and diagonal branches with 15% stenosis. If graft is supplying this area, 0 % stenosis bw:24 PM Lesion found in Mid Circumflex. Pre Stenosis: 20 Pre NICOLÁS Flow: [email or web address] 04:24 PM Circumflex, Obtuse Marginal, Left Posterior Descending, and Left Posterolateral Coronary Arteries with 20 % stenosis. If graft is supplying this area, 0 % stenosis [email or web address] 04:26 PM Catheter removed [email or web address] 04:27 PM 5Fr Pigtail catheter inserted over the wire [facility] [email or web address] 04:27 PM Catheter selectively placed in left ventricle [email or web address] 04:27 PM HR=65 bpm, SMOX=808/77 mmhg, SpO2=95.0 %, Resp=11 B/min 04:27 PM Recorded Pressure: LV, HR=68, Condition=Condition 1 (Left Ventricle) LV 126/0/12 04:27 PM Bolus angiogram of left Ventricle complete: 10 ml/sec for a total of 30 mls [email or web address] 04:28 PM Recorded Pressure: LV, Ao, HR=71, Condition=Condition 1 (Left Ventricle) LV 127/13/22, (Aorta) Ao 123/27/73 04:29 PM Catheter removed [email or web address] 04:29 PM 5Fr 3DRC catheter inserted over the wire [id number] [email or web address] 04:31 PM Catheter removed [email or web address] 04:31 PM 5Fr MPA catheter inserted over the wire [id number] [email or web address] 04:33 PM HR=65 bpm, XSYO=482/78 mmhg, SpO2=99.0 %, Resp=11 B/min 04:33 PM RCA angiography performed in multiple views. [email or web address] 04:33 PM Coronary Dominance: right [email or web address] 04:34 PM Lesion found in Mid RCA. Pre Stenosis: 20 Pre NICOLÁS Flow: [email or web address] 04:34 PM Right Coronary, Right Posterior Descending Arteries with Right Posterolateral and Acute Marginal branches with 20 % stenosis. If graft is supplying this area, 0 % stenosis [email or web address] 04:34 PM Bolus angiogram of right Femoral complete: 4 ml/sec for a total of 7 mls [email or web address] 04:36 PM Arterial sheath pulled, Mynx closure device used and was Successful [id number] S/N. [email or web address] 04:36 PM Procedure completed at 16:36 [email or web address] 04:37 PM Sign out completed: Radiation Dose 494.39 mGy Fluoro Time: 4.3 Isovue 370 - 200ml contrast 85 ml given by Patric Whitehead MD, [facility]. Complications: NoneCardiac Rehab Consult needed: NoConfirmed administered medications: Yes [email or web address] 04:37 PM Isovue 370 - 200ml,1 Bottle(s) used. [email or web address] 04:37 PM HR=74 bpm, BQNR=415/76 mmhg, SpO2=97.0 %, Resp=12 B/min 04:37 PM Estimated Blood Loss: less than 20cc [email or web address] 04:37 PM Time: 16:22 Patient comfortable and pain free: Yes [email or web address] 04:37 PM Time: 16:22LOC: 5 = Fully awake and oriented or at pre-proc level [email or web address] 04:37 PM Post ECG NSR [email or web address] 04:38 PM Post Blood Pressure 134/76 [email or web address] 04:38 PM Information taught Cardiac Cath and Mynx [email or web address] 04:38 PM Education needs Procedure, Plan of Care, and Disease Process [email or web address] 04:38 PM Learning barriers :Sedated [email or web address] 04:38 PM Education Methods Verbal [email or web address] 04:38 PM Education evaluation Needs further instruction [email or web address] 04:38 PM Site status No bleeding/hematoma - Rt Groin as reported by Ekaterina Ascencio RT (R) at 16:38 [email or web address] 04:38 PM Opsite applied [email or web address] 04:38 PM Delay to floor No [email or web address] 04:39 PM Family placed in consult room. [email or web address] 04:39 PM Complications: None [email or web address] 04:39 PM Fluoro Time: 4.3 [email or web address] 04:39 PM Isovue 370 - 200ml contrast 85 ml given by . [email or web address] 04:39 PM Radiation Dose 494.39 mGy [email or web address] 04:40 PM 16:40 Post Pulses Bilateral DP & PT 1+ [email or web address] 04:42 PM HR=62 bpm, CQDW=584/84 mmhg, SpO2=98.0 %, Resp=15 B/min 04:44 PM Report given to jerald HOLLY Pt taken to Room #49. 16:42 [email or web address] 04:46 PM Vitals capture stopped. 04:48 PM Patient out of room: 16:48 [email or web address] Complications Complication None None Hemodynamics Pressures Site Systolic/A Wave Diastolic/V Wave Mean AO 103 80 90 LV 126 0 12 LV 127 13 22 AO 123 27 73 Post Procedure Information Blood Pressure: 134/76 mmHg Rhythm: NSR Post procedural instructions were given Closure Device Time Device Success/Fail 12/28/2017 4:36:00 PM MynxGrip Successful Site Checks Time Location Status Staff Sheath In? Note 04:38 PM Rt Groin No bleeding/hematoma Ekaterina Ascencio RT (R) Pulses Time Site Pre-Procedure Post-Procedure Note 12/28/2017 3:51:00 PM Bilateral DP & PT 1+ 12/28/2017 3:51:00 PM Rt Radial 2+ 12/28/2017 3:51:00 PM Lt Radial 2+ 4:40:00 PM Bilateral DP & PT 1+ Updated by Talon Sewell RT (R) on 12/28/2017 4:48:47 PM Talon Sewell RT electronically signed on 12/28/2017 4:49:12 PM with status of Final
[2017-12-28] MEDS: Ziprasidone 20 MG CAPSULE PO SCH (21:12)
[2017-12-29] MEDS: *HR* Heparin 5,000 UNIT/ML VIAL SQ SCH (05:49)
[2017-12-29 06:25] LABS: Hematocrit 40.3 % (35.3-44.9); Hemoglobin 13.4 g/dL (11.5-15.4); Mean Corpuscular HGB Conc 33.3 g/dL (31.6-35.5); Mean Corpuscular Hemoglobin 26.6 pg (28.0-33.3); Mean Platelet Volume 10.7 fL (9.4-12.4); Platelet Count 253 K/mcL (140-400); Red Blood Count 5.04 M/mcL (3.82-4.97); Red Cell Distribution Width 14.4 % (11.5-14.5)
[2017-12-29 06:46] LABS: BUN/Creatinine Ratio 11 (6-26); Blood Urea Nitrogen 7 mg/dL (6-20); Calcium 9.2 mg/dL (8.6-10.3); Carbon Dioxide 22 mEq/L (23-29); Chloride 110 mEq/L (98-107); Cholesterol 128 mg/dL (< 200); Glucose 135 mg/dL (70-105); HDL Cholesterol 32 mg/dL (40-59); LDL Cholesterol,Calculated 53 mg/dL (0-99); Osmolality,Calculated 290 (280-300); Potassium 4.2 mEq/L (3.5-5.1); Sodium 140 mEq/L (136-145); Triglycerides 217 mg/dL (< 150); eGFR For African Americans > 60 (> 60); eGFR For Non-African Americans > 60 (> 60)
[2017-12-29 07:17] VITALS: BP 133/83
[2017-12-29] MEDS: Aspirin Enteric Coated 81 MG Tablet PO SCH (08:12)
[2017-12-29] MEDS: *HR* Glimepiride 2 MG TABLET PO SCH (08:12)
[2017-12-29] MEDS: Tolterodine LA (24 HR) 4 MG CAP.ER.24H PO SCH (08:12)
[2017-12-29] MEDS: clonazePAM 1 MG TABLET PO SCH (08:13)
[2017-12-29] MEDS: Isosorbide MONOnitrate (24 HR) 30 MG TAB.ER.24H PO SCH (08:13)
[2017-12-29] MEDS: (Empagliflozin [Jardiance] 25 MG) PO SCH (08:15)
[2017-12-29] MEDS: Insulin LISPRO 300 UNITS/3 ML VIAL SQ SCH (08:21)
[2017-12-29] MEDS: Lithium Carbonate 300 MG CAPSULE PO SCH (08:21)
[2017-12-29 09:05] LABS: Estimated Average Glucose 131 mg/dl; Hemoglobin A1C 6.2 %
--- NOTE | 2017-12-29 09:10 | Event Note ---
Date of Encounter: 12/29/17 Time of Encounter: 09:08 - Cardiology Event Note LHC showed minimal atherosclerotic CAD. EF 65%. Continue ASA, Statin, BB. Cardiology signing off. Reconsult PRN. Follow-up with PCP as outpt.
--- NOTE | 2017-12-29 10:26 | Discharge Summary ---
Orders not resulted at time of discharge: Pending orders 12/28/17 11:18 CL Cardiac Catheterization [CL] Routine 12/30/17 04:00 BMP [Basic Metabolic Panel] AM 0400 Complete Blood Count w/o Diff [HEME] AM 0400 12/31/17 04:00 BMP [Basic Metabolic Panel] AM 0400 Complete Blood Count w/o Diff [HEME] AM 0400 01/01/18 04:00 BMP [Basic Metabolic Panel] AM 0400 Complete Blood Count w/o Diff [HEME] AM 0400 01/02/18 04:00 BMP [Basic Metabolic Panel] AM 0400 Complete Blood Count w/o Diff [HEME] AM 0400 Date of Encounter: 12/29/17 Time of Encounter: 10:20 - Discharge Diagnosis (1) CAD (coronary artery disease) Priority: Primary Status: Acute Assessment and Plan: 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 Remained chest pain free throughout hospitalization. Serial troponin negative, EKG without acute ST changes. 12/28/17 LHC showed minimal atherosclerotic CAD. EF 65%. Continue ASA, Statin, BB. Qualifiers: Coronary Disease-Associated Artery/Lesion type: [place] artery [place] vs. transplanted heart: [place] heart Associated angina: with unstable angina Qualified Code(s): I25.110 - Atherosclerotic heart disease of [place] coronary artery with unstable angina pectoris (2) Diabetes mellitus Priority: Secondary Status: Acute Assessment and Plan: per hx. Hgb A1c 6.2%. Continue home diabetes medication regimen. Dietary/ lifestyle modifications encouraged. 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 BP controlled. Cont home BP medication. Qualifiers: Hypertension type: essential hypertension Qualified Code(s): I10 - Essential (primary) hypertension (4) Psychiatric disorder Priority: Secondary Status: Chronic Assessment and Plan: hx multiple psychiatric disorder. Cont home medication regimen. (5) Morbid obesity with BMI of 60.0-69.9, adult Priority: Secondary Status: Chronic Assessment and Plan: BMI 64, weight 155 kg. Dietary/lifestyle modifications encouraged. Hospital course: See assessment and plan for hospital course Discharge discussed with: patient (Seen and examined at bedside. Patient says she feels well and wants to discharge home today. Denies chest pain, no shortness of breath. She is aware of left heart catheterization result.) - Time Spent with Patient Total time spent providing and/or coordinating discharge services: - Discharge Medications Home Medications: Albuterol Sulfate [Albuterol Inhaler] 2 puff IH Q4HR PRN 07/29/17 [History] Citalopram Hydrobromide [Celexa] 40 mg PO DAILY 07/29/17 [History] Esomeprazole Magnesium [Nexium] 40 mg PO DAILY 07/29/17 [History] Fluticasone Propionate Nasal [Flonase] 2 spr NS DAILY PRN 07/29/17 [History] Glimepiride [Amaryl] 2 mg PO 0800 07/29/17 [History] Levothyroxine [Synthroid] 175 mcg PO 0630 07/29/17 [History] Lisinopril [Zestril] 5 mg PO DAILY 07/29/17 [History] [place] Carbonate 300 mg PO QAM 07/29/17 [History] [place] Carbonate 600 mg PO HS 07/29/17 [History] Metformin HCl [Glucophage] 1,000 mg PO BID 07/29/17 [History] Ranitidine HCl [Zantac] 150 mg PO BID 07/29/17 [History] Tolterodine LA (24 HR) [Detrol LA] 4 mg PO DAILY 07/29/17 [History] Ziprasidone HCl [Geodon] 60 mg PO HS 07/29/17 [History] clonazePAM [Klonopin] 1 mg PO TID 07/29/17 [History] OxyCODONE/APAP 5/325 [Percocet 5/325 MG] 1 each PO Q6HR PRN #14 tablet 08/03/17 [Rx] Aspirin [Adult Aspirin Regimen] 81 mg PO DAILY 12/27/17 [History] Atorvastatin Calcium [Lipitor] 20 mg PO HS 12/27/17 [History] Empagliflozin [Jardiance] 25 mg PO DAILY 12/27/17 [History] Allergies/Adverse Reactions: 3 Allergy/AdvReac Type Severity Reaction Status Date / Time bupropion [From Wellbutrin] AdvReac Shakiness Verified 12/27/17 14:20 Date of admission: 12/27/17 15:16 Primary care physician: Aidan Bhat MD Consults: 12/28/17 10:52 Consult to Cardiology [CONS] Routine Comment: Consulting Provider: Cardiology Yaneth Reason for Consult: abnormal stress test Call Completed: Yes Discharging clinician: Tari Carlson Anticipated date of discharge: 12/29/17 - Constitutional Vitals: Temp Pulse Resp BP Pulse Ox 98.0 F 69 16 133/83 93 12/29/17 07:15 12/29/17 07:15 12/29/17 07:15 12/29/17 07:15 12/29/17 07:15 General appearance: Present: A&O X 3, morbidly obese, pleasant, no acute distress, answers questions appropriately - Head Head exam: Present: atraumatic, normocephalic - Eye Eye exam: Present: PERRL, conjuntiva pink, sclera anicteric Pupils: Present: PERRL - Neck Neck exam general surgery: Present: supple, trachea midline. Absent: lymphadenopathy - Respiratory Respiratory exam: Present: CTAB. Absent: accessory muscle use, rales, rhonchi, wheezes - Cardiovascular Cardiovascular exam: Present: RRR, +S1, +S2. Absent: diastolic murmur, gallop, rubs, systolic murmur - GI/Abdominal GI/Abdominal exam: Present: normal bowel sounds, soft, no peritoneal signs. Absent: distended, tenderness - Extremities Exam Extremities exam: Present: warm, radial pulses palpable and symmetrical. Absent : calf tenderness, cyanotic, pedal edema - Neurological Exam Neurological exam: Present: CN II-XII intact, oriented X3, no focal deficits. Absent: pronater drift, facial droop, speech deficit - Skin Skin exam: Present: dry, intact - Patient Status Disposition: Home, Self-Care Condition: Good Functional capacity at discharge: independent ambulation Overall status at discharge: patient is back to baseline - Discharge Instructions Instructions: Coronary Artery Disease (DC), Weight Management (DC), Obesity (DC ), Diabetes Mellitus Type 2 in Adults (DC) Follow Up With: Aidan Bhat MD [Primary Care Provider] - (Please call for follow-up appointment within 7-10 days) - Diet and Activity Activity: increase activity as tolerated Diet: diabetic diet, low fat, low cholesterol
== END 2017-12-29 11:22 | disposition home or self-care (01) ==
LOC: EMEROO 11:52 → 3BNU 11:52
PROVIDERS: ADMIT Internal Medicine; ATTEND Internal Medicine